=== PATIENT | male | born 1975 | race Caucasian/White ===

== ENCOUNTER → 2021-09-09 09:19 | Outpatient (BNVA) | payer BC, SELFPAY | PROVIDERS: Visit Provider Nurse Practitioner Family | DX: I10 Essential (primary) hypertension (principal); R73.9 Hyperglycemia, unspecified | CPT/HCPCS: 80053; 80061; 83036; 84443; 85025 ==

== ENCOUNTER 2022-09-22 06:08 | Outpatient (CLI) | payer BC, SELFPAY ==
--- NOTE | 2022-09-22 06:15 | US_ITS ---
WS: [id number] Complete ABDOMINAL ULTRASOUND HISTORY: FAMILY HX AAA COMPARISON: None available. Liver: 16.6 cm in length. Normal size liver. Very mild hepatic steatosis. No mass or bile duct dilata tion. Portal Vein: Normal hepatopetal flow with monophasic waveform. Gallbladder: Normally distended with no gallstones, wall thickening or pericholecystic fluid. Pancreas: Partially obscured. The body is negative. CBD: 0.4 cm. Right kidney: 12.0 cm x 6.0 cm x 5.9 cm. No mass, cortical thickening or hydronephrosis. Left kidney: 11.1 cm x 5.2 cm x 5.1 cm. No mass, cortical thickening or hydronephrosis. Spleen: Normal size and echogenicity. Abdominal aorta and IVC are within normal limits. No ascites. US/US abdomen complete* [id number] IMPRESSION: 1. Normal gallbladder. 2. Mild hepatic steatosis. 3. No bile duct dilatation. 4. Negative kidneys.
== END 2022-09-22 06:09 | disposition home or self-care (01) ==
LOC: RAD 06:10
PROVIDERS: PCP Nurse Practitioner Family; Visit Provider Nurse Practitioner Family
DX: F17.200 Nicotine dependence, unspecified, uncomplicated (principal); Z82.49 Family history of ischemic heart disease and other diseases of the circulatory system; I10 Essential (primary) hypertension
CPT/HCPCS: 76700; 80053; 80061

== ENCOUNTER → 2024-03-30 11:45 | Outpatient (BNVA) | payer BC, SELFPAY | PROVIDERS: PCP Nurse Practitioner Family; Visit Provider Nurse Practitioner Family | DX: I10 Essential (primary) hypertension (principal); E78.5 Hyperlipidemia, unspecified | CPT/HCPCS: 80053; 80061; 85025 ==

== ENCOUNTER → 2025-03-27 10:48 | Outpatient (BNVA) | payer BC, SELFPAY | PROVIDERS: PCP Nurse Practitioner Family; Visit Provider Nurse Practitioner Family | DX: I10 Essential (primary) hypertension (principal) | CPT/HCPCS: 80053; 80061; 84443; 85025; G0103 ==